=== PATIENT | female | born 1970 | race Caucasian/White ===

== ENCOUNTER 2021-04-01 15:41 | Emergency (ER) | payer OTHER ==
[~2021-04-01] VITALS: Ht 152.4 cm; Wt 79.4 kg
[~2021-04-01 15:41] MED LIST: DOXYCYCLINE 10100 M1 PO; EFFEXOR XR150 MG; NORCO 5-325 TA1 EACH PO; XANAX 0.5 MG0.5 MG
[2021-04-01] MEDS ORDERED: NORCO5 PO (17:48)
[2021-04-01] MEDS ORDERED: MEDROLDOSEPACK PO (17:48)
[2021-04-01] MEDS ORDERED: NAPROSYN500 MG PO (17:48)
[2021-04-01 18:02] VITALS: BP 138/96
== END 2021-04-01 18:04 | disposition home or self-care (01) ==
LOC: M.ERS 15:41
DX: M47.894 Other spondylosis, thoracic region (principal); M51.34 Other intervertebral disc degeneration, thoracic region; G89.29 Other chronic pain; F17.210 Nicotine dependence, cigarettes, uncomplicated; Z88.1 Allergy status to other antibiotic agents; Z88.2 Allergy status to sulfonamides; Z98.890 Other specified postprocedural states